=== PATIENT | male | born 1990 | race American Indian/Alaskan Native ===

== ENCOUNTER 2016-07-29 17:22 | Emergency (ER) | payer MEDICAID ==
[2016-07-29 18:12] LABS: Urine Drugs of Abuse Note Disclamer
[2016-07-29 18:19] LABS: Anion Gap 16 mmol/L; BUN/Creatinine Ratio 13.75; Blood Urea Nitrogen 11 mg/dL (9-20); Calcium 9.6 mg/dL (8.4-10.2); Carbon Dioxide 27 mmol/L (22-30); Chloride 98.6 mmol/L (98-107); Glucose 78 mg/dL (75-100); Potassium 3.9 mmol/L (3.6-5.0); Sodium 138 mmol/L (137-145)
[2016-07-29 18:39] LABS: Basophils % (Auto) 0.2 % (0.0-1.8); Eosinophils % (Auto) 0.2 % (0.0-4.3); Hematocrit 40.1 % (35.5-45.6); Hemoglobin 12.7 gm/dl (11.8-15.2); Mean Corpuscular HGB Conc 32 % (32-34); Mean Corpuscular Hemoglobin 28 pg (28-32); Mean Corpuscular Volume 88 fl (84-94); Platelet Count 164 K/mm3 (140-440); Red Blood Count 4.57 M/mm3 (3.65-5.03); Red Cell Distribution Width 15.1 % (13.2-15.2); White Blood Count 3.4 K/mm3 (4.5-11.0)
[2016-07-29 18:46] LABS: Bilirubin,Urine NEG (Negative); Blood,Urine NEG (Negative); Ketones,Urine NEG (Negative); Leukocyte Esterase,Urine NEG (Negative); Nitrite,Urine NEG (Negative); Protein,Urine <15 mg/dL mg/dL (Negative); RBC,Urine < 1.0 /HPF (0.0-6.0); Urobilinogen,Urine < 2.0 mg/dL (<2.0)
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
[2016-07-30] MEDS ORDERED: BENADRYL ONE (00:13)
[2016-07-30] MEDS ORDERED: GEODON IM PRN (09:20)
[2016-07-30] MEDS ORDERED: GEODON PO SCH (10:00)
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
[2016-07-30 16:00] LABS: Alanine Aminotransferase 12 units/L (7-56); Alkaline Phosphatase 72 units/L (35-129)
[2016-07-30 22:45] VITALS: BP 111/61
--- NOTE | 2016-07-31 10:39 | Progress Note ---
Subjective - Reason for Consult Consult date: 07/31/16 Reason for consult: evaluate if patient continue to need an involuntary psychiatric hold (1013) - Chief Complaint Chief complaint: "I just want to report it" Mental Status Exam - Vital signs Last Vital Signs Temp 98.0 F 07/30/16 22:00 Pulse 76 07/30/16 22:00 Resp 16 07/30/16 22:00 BP 111/61 07/30/16 22:00 Pulse Ox 100 07/30/16 22:00 Assessment and Plan On clinical examination, patient was appropriate and engaged with interviewer. Furthermore, patient notes that he is not having any suicidal thoughts or homicidal thoughts. He is denying delusions. He does report incident that he discussed with Rodo, the nurse practitioner, did occur; however, he realizes that this is not the appropriate form or venue to have that discussion. At the current time, patient is no longer under the influence of the substance and is clear and logical and able to care for himself. He is not at imminent risk of harm to self or others. General Appearance: casually dressed, no acute distress Sensorium/Consciousness: alert and responding to external stimuli; clear Orientation: person, place, time and situation Eye Contact: Good Attitude / Behavior: Cooperative Psychomotor & Musculoskeletal Activity: WNL Mood: ok Affect: Euthymic Speech / Language: fluent, with normal rate/rhythm/tone Thought Processes: organized, logical, linear Thought Content: no SI, no HI Perception: no AVH Insight: Fair Judgement: Fair Capacity for ADLs: independent I. This screening and assessment is based on information collected from the following sources: II. SUICIDE RISK SCREENING (within last 30 days): A.) Suicidal thoughts/behaviors: None noted SUICIDE RISK ASSESSMENT III. FACTORS THAT INCREASE RISK: A.) Demographic and Substance Use Factors: Chronic use of marijuana B.) Current/Recent Factors (within past 3 months): Psychosocial/Environmental Factors: [facility] in a [facility] Physical Illness: None Cognitive/Psychological Factors: None C.) Historical Factors: None D.) Diagnostic/Symptom/Treatment Factors: None E.) Acute Risk Factor Severity (DESC; MILD/MOD/SEVERE) mild Other factors for this individual that increase risk: IV. FACTORS THAT DECREASE RISK: Resilience/Protective Factors: Intermittent psychosocial supports Other factors for this individual that decrease risk: Patient reports he is future oriented and currently denying a desire to harm self. V. Clinician's Formulation of Risk and Determination of level of Care: This is a 26-year-old male who is having both chronic and acute stressors which have brought him to the ER. Just prior to the ER presentation patient was intoxicated on cannabis and verbalized that he wanted to confess something that had been bothering him for a while. Since being hospitalized, the patient has consistently denied the desire to harm himself. He has been in the ER for over 48 hours and has not shown any gestures and consistently denied desire to harm himself. Additionally, patient is no longer intoxicated. Additionally, he has become insightful about how to better address his guilt about the situation as bothering him. He is currently not delusional or intoxicated. He is able to take care of his ADLs and is not at imminent risk of harm to self or others. Consequently, it is the opinion of the treatment team that the patient is at low risk of suicide and does not meet criteria to continue an involuntary psychiatric cold. Estimation of Imminent Risk: Low due to the above explanation Determination of Level of Care based on Suicide Risk: Outpatient follow-up. Furthermore, patient has had consistently denied the desire to harm himself. And now that he is on longer intoxicated, he is not reporting any delusions. Narrative description of clinical reasoning. (This must be completed on all patients): . Plan and Interventions based on Suicide Risk: This patient will likely be stepped down to an outpatient mental health center in the community upon discharge and follow-up within 7 days of his discharge from the hospital. VII. Discharge/After Hours Support Plan: Patient can return back to the ER, call 911 or crisis line if symptoms of depression, anxiety, suicidality return.
== END 2016-07-31 12:03 | disposition other institution (70) ==
LOC: EEVIPCON 17:22 → ED 17:22
DX: R45.850 Homicidal ideations (principal); R56.9 Unspecified convulsions; F20.0 Paranoid schizophrenia
CPT/HCPCS: 36415; 80048; 80164; 80307; 81001; 84075; 84450; 84460; 85025; 96372; 99284; G0480; J3486; 80320; J1200